=== PATIENT | male | born 1970 | race Hispanic/Latino ===

== ENCOUNTER 2024-05-05 12:01 | Emergency (ER) | payer OTHER ==
[~2024-05-05] VITALS: Ht 167.6 cm; Wt 76.2 kg
[2024-05-05] MEDS ORDERED: IOPAMIDOL 370 MG/ML 100 ML INFUS..BTL INJ ONE (13:36)
[2024-05-05] MEDS: SODIUM CHLORIDE 0.9% 1000ML 1,000 ML IV SCH (14:02)
[2024-05-05] MEDS: KETOROLAC TROMETHAMINE 30 MG/ML VIAL IV STA (14:03)
[2024-05-05 16:02] VITALS: PULSE 65; RESP 18; TEMP 97.3; O2SAT 96
== END 2024-05-05 16:34 | disposition home or self-care (01) ==
LOC: FSED 12:11
DX: R10.30 Lower abdominal pain, unspecified (principal); K59.00 Constipation, unspecified; N28.9 Disorder of kidney and ureter, unspecified; D35.00 Benign neoplasm of unspecified adrenal gland
CPT/HCPCS: 74177; 80048; 80053; 81003; 82553; 84484; 85025; 99284; J1885; J7030; Q9967